=== PATIENT | female | born 1975 | race Caucasian/White ===

== ENCOUNTER 2020-02-02 22:02 | Emergency (ER) | payer BC ==
[2020-02-02] MEDS ORDERED: Acetaminophen/HYDROcodone 325-5 MG Tab PO ONE (22:03)
[2020-02-02] MEDS ORDERED: Sodium Chloride 0.9% 1,000 ML IV ONE (22:26)
[2020-02-02] MEDS ORDERED: Ondansetron 4 MG/2 ML SDV IVPUSH ONE (22:27)
[2020-02-02] MEDS ORDERED: Ketorolac 30 MG/ML SDV IVPUSH ONE (22:27)
--- NOTE | 2020-02-02 22:34 | EDM.PDOC ---
ED HPI GENERAL MEDICAL PROBLEM - General Chief Complaint: Abdominal Pain Stated Complaint: tummy pain Time Seen by Provider: 02/02/20 22:10 Source of Information: Reports: Patient History Limitations: Reports: No Limitations - History of Present Illness INITIAL COMMENTS - FREE TEXT/NARRATIVE: Gradually worsening RLQ abd pain since this am since 8pm got worse , has had to vomit 2 times due to the pain sharp intermittent LAP , may radiate to the flank LMP 3 days ago no fever but had chills no cough , no sob Onset: Gradual Onset Date: 02/02/20 Onset Time: 08:30 Duration: Getting Worse, Intermittent Location: Reports: Abdomen Quality: Reports: Ache, Dull Severity: Moderate Worsens with: Reports: Movement Associated Symptoms: Reports: Diaphoresis, Malaise, Nausea/Vomiting R lower abdomen Pain Score (Numeric/FACES): 8 - Related Data Allergies Allergy/AdvReac Type Severity Reaction Status Date / Time No Known Allergies Allergy Verified 02/02/20 22:10 Home Meds: Home Meds Acetaminophen/HYDROcodone [[place] 325-5 MG] 1 tab PO Q6H #20 tablet 02/03/20 [Rx] Ondansetron [Zofran ODT] 4 mg PO Q6H PRN #30 tab.dis 02/03/20 [Rx] Tamsulosin HCl [Flomax] 0.4 mg PO DAILY #30 capsule 02/03/20 [Rx] ED ROS GENERAL - Review of Systems Review Of Systems: See Below Constitutional: Reports: Malaise, Weakness HEENT: Reports: No Symptoms Respiratory: Reports: No Symptoms Cardiovascular: Reports: No Symptoms Endocrine: Reports: No Symptoms GI/Abdominal: Reports: Abdominal Pain, Anorexia, Decreased Appetite, Nausea, Vomiting. Denies: Constipation, Diarrhea : Reports: No Symptoms Musculoskeletal: Reports: No Symptoms Skin: Reports: No Symptoms Neurological: Reports: No Symptoms Psychiatric: Reports: No Symptoms ED EXAM, GI/ABD - Physical Exam Exam: See Below Exam Limited By: No Limitations General Appearance: Alert, WD/WN, Mild Distress (in obvious pain) Eyes: Bilateral: EOMI Ears: Normal External Exam Throat/Mouth: Normal Inspection, Normal Oropharynx Head: Atraumatic, Normocephalic Neck: Normal Inspection, Supple, Non-Tender Respiratory/Chest: No Respiratory Distress, Lungs Clear Cardiovascular: Regular Rate, Rhythm GI/Abdominal Exam: Soft, Non-Tender Extremities: Normal Inspection, Normal Range of Motion Neurological: Alert, Oriented, CN II-XII Intact Psychiatric: Normal Affect Skin Exam: Warm, Dry Course - Vital Signs Last Recorded V/S: Last Vital Signs Temp 37.6 C 02/03/20 00:59 Pulse 102 H 02/03/20 00:59 Resp 20 02/03/20 00:59 BP 164/79 H 02/03/20 00:59 Pulse Ox 99 02/03/20 00:59 - Orders/Labs/Meds Orders: Active Orders 24 hr Category Date Time Status Abdomen Pelvis wo Cont [CT] Stat Exams 02/02/20 23:24 Taken CULTURE URINE [RM] Stat Lab 02/02/20 23:26 Received Sodium Chloride 0.9% [Normal Saline] 1,000 ml Med 02/03/20 00:15 Active IV ASDIRECTED cefTRIAXone [Rocephin] Med 02/02/20 23:45 Active 1 gm IVPUSH Q24H Medication Orders Ceftriaxone Sodium (Rocephin) 1 gm IVPUSH Q24H MARCELO Last Admin: 02/02/20 23:41 Dose: 1 gm Sodium Chloride (Normal Saline) 1,000 mls @ 999 mls/hr IV ASDIRECTED MARCELO Last Admin: 02/03/20 00:26 Dose: 999 mls/hr Labs: Laboratory Tests 02/02/20 02/02/20 02/02/20 Range/Units 22:24 22:24 22:40 WBC 10.3 (4.5-12.0) X10-3/uL RBC 4.63 (3.23-5.20) x10(6)uL Hgb 13.1 (11.5-15.5) g/dL Hct 40.4 (30.0-51.3) % MCV 87.2 (80-96) fL MCH 28.4 (27.7-33.6) pg MCHC 32.5 (32.2-35.4) g/dL RDW 12.9 (11.5-15.5) % Plt Count 335 (125-369) X10(3)uL MPV 7.9 (7.4-10.4) fL Neut % (Auto) 78.4 (46-82) % Lymph % (Auto) 16.6 (13-37) % [place] % (Auto) 3.6 L (4-12) % Eos % (Auto) 1 (1.0-5.0) % Baso % (Auto) 1 (0-2) % Neut # (Auto) 8.0 (1.6-8.3) # Lymph # (Auto) 1.7 (0.6-5.0) # [place] # (Auto) 0.4 (0.0-1.3) # Eos # (Auto) 0.1 (0.0-0.8) # Baso # (Auto) 0.1 (0.0-0.2) # Sodium 143 (135-145) mmol/L Potassium 3.9 (3.5-5.3) mmol/L Chloride 104 (100-110) mmol/L Carbon Dioxide 29 (21-32) mmol/L BUN 11 (7-18) mg/dL Creatinine 1.2 H (0.55-1.02) mg/dL Est Cr Clr Drug Dosing TNP Estimated GFR (MDRD) 49 L (>60) BUN/Creatinine Ratio 9.2 (9-20) Glucose 116 (80-116) mg/dL Calcium 9.0 (8.6-10.2) mg/dL Total Bilirubin 0.3 (0.1-1.3) mg/dL AST 23 (5-25) IU/L ALT 42 H (12-36) U/L Alkaline Phosphatase 97 (56-112) IU/L Total Protein 8.0 (6.0-8.0) g/dL Albumin 4.1 (3.5-5.2) g/dL Globulin 3.9 g/dL Albumin/Globulin Ratio 1.1 Urine Color Yellow (YELLOW) Urine Appearance Slightly cloudy (CLEAR) Urine pH 5.0 (5.0-6.5) Ur Specific [place] 1.030 H (1.010-1.025) Urine Protein Negative (NEGATIVE) mg/dL Urine Glucose (UA) Normal (NORMAL) mg/dL Urine Ketones Negative (NEGATIVE) mg/dL Urine Occult Blood Moderate H (NEGATIVE) Urine Nitrite Negative (NEGATIVE) Urine Bilirubin Negative (NEGATIVE) Urine Urobilinogen Normal (NEGATIVE) mg/dL Ur Leukocyte Esterase Moderate H (NEGATIVE) Urine RBC 5-10 H (0-5) Urine WBC 5-10 H (0-5) Ur Squamous Epith Cells Few H (NS,R,O) Urine Bacteria Few H (NS) Urine Mucus Few H (NS) Meds: Medications Generic Name Dose Route Start Last Admin Trade Name Best PRN Reason Stop Dose Admin Ceftriaxone Sodium 1 gm 02/02/20 23:45 02/02/20 23:41 Rocephin IVPUSH 1 gm Q24H MARCELO Administration Sodium Chloride 1,000 mls @ 999 mls/hr 02/03/20 00:15 02/03/20 00:26 Normal Saline IV 999 mls/hr ASDIRECTED MARCELO Administration Discontinued Medications Generic Name Dose Route Start Last Admin Trade Name Best PRN Reason Stop Dose Admin Sodium Chloride 1,000 mls @ 999 mls/hr 02/02/20 22:26 02/02/20 22:35 Normal Saline IV 02/02/20 23:26 999 mls/hr .BOLUS ONE Administration Ceftriaxone Sodium 1 gm/ 50 mls @ 200 mls/hr 02/02/20 23:24 02/02/20 23:41 Sodium Chloride IV 02/02/20 23:38 Not Given ONETIME ONE Prochlorperazine Edisylate 10 52 mls @ 150 mls/hr 02/03/20 00:01 02/03/20 00: 32 mg/ Sodium Chloride IV 02/03/20 00:21 150 mls/hr ONETIME ONE Administration Ketorolac Tromethamine 30 mg 02/02/20 22:27 02/02/20 22:35 Toradol IVPUSH 02/02/20 22:28 30 mg ONETIME ONE Administration Methylprednisolone Sodium Succinate 125 mg 02/03/20 00:12 02/03/20 00:30 Solu-Medrol IVPUSH 02/03/20 00:13 125 mg ONETIME ONE Administration Morphine Sulfate 4 mg 02/02/20 23:52 02/03/20 00:00 Morphine IVPUSH 02/02/20 23:53 4 mg ONETIME ONE Administration Ondansetron HCl 4 mg 02/02/20 22:27 02/02/20 22:37 Zofran IVPUSH 02/02/20 22:28 4 mg ONETIME ONE Administration Tamsulosin HCl 0.4 mg 02/02/20 23:53 02/03/20 00:00 Flomax PO 02/02/20 23:54 0.4 mg ONETIME ONE Administration - Re-Assessments/Exams Free Text/Narrative Re-Assessment/Exam: 02/03/20 01:51 pt given IVF 2 liters zofran , compazine , Morphine diagnosed with renal calculi 02/03/20 02:00 Departure - Departure Time of Disposition: 02:00 Disposition: Home, Self-Care 01 Clinical Impression: Renal calculi, UTI (urinary tract infection) - Discharge Information *PRESCRIPTION DRUG MONITORING PROGRAM REVIEWED*: Not Applicable *COPY OF PRESCRIPTION DRUG MONITORING REPORT IN PATIENT JANETH: Not Applicable Prescriptions: Acetaminophen/HYDROcodone [[place] 325-5 MG] 1 tab PO Q6H #20 tablet Ondansetron [Zofran ODT] 4 mg PO Q6H PRN #30 tab.dis PRN Reason: Nausea/Vomiting Tamsulosin HCl [Flomax] 0.4 mg PO DAILY #30 capsule Instructions: Renal Colic, [id number], Nausea and Vomiting, Adult, Easy-to- Read, Urinary Tract Infection, Adult, [id number], Dietary Guidelines to Help Prevent Kidney Stones Referrals: PCP,None [Primary Care Provider] - Forms: ED Department Discharge Additional Instructions: 1)Increase fluid intake 2) Strain urine : obtain stone and bring in for evaluation 3) Follow up with PCP as needed Sepsis Event Note - Focused Exam Vital Signs: Vital Signs Temp Temp Pulse Resp BP Pulse Ox 02/03/20 00:59 37.6 C 102 H 20 164/79 H 99 02/02/20 23:21 37.4 C 86 20 131/71 100 02/02/20 22:05 37.1 C 67 18 160/83 H 99 Date Exam was Performed: 02/03/20 Time Exam was Performed: 02:01 - My Orders Last 24 Hours: My Active Orders 02/02/20 23:24 Abdomen Pelvis wo Cont [CT] Stat 02/02/20 23:26 CULTURE URINE [RM] Stat 02/02/20 23:45 cefTRIAXone [Rocephin] 1 gm IVPUSH Q24H 02/03/20 00:15 Sodium Chloride 0.9% [Normal Saline] 1,000 ml IV ASDIRECTED - Assessment/Plan Last 24 Hours: My Active Orders 02/02/20 23:24 Abdomen Pelvis wo Cont [CT] Stat 02/02/20 23:26 CULTURE URINE [RM] Stat 02/02/20 23:45 cefTRIAXone [Rocephin] 1 gm IVPUSH Q24H 02/03/20 00:15 Sodium Chloride 0.9% [Normal Saline] 1,000 ml IV ASDIRECTED
[2020-02-02] MEDS ORDERED: cefTRIAXone 1 GM in Sodium Chloride 0.9% 50 ML IV ONE (23:24)
[2020-02-02] MEDS ORDERED: cefTRIAXone 1 GM Vial IVPUSH SCH (23:45)
[2020-02-02] MEDS ORDERED: Morphine 2 MG/ML Syringe IVPUSH ONE (23:52)
[2020-02-02] MEDS ORDERED: Tamsulosin 0.4 MG Cap.ER PO ONE (23:53)
[2020-02-03] MEDS ORDERED: Prochlorperazine 10 MG in Sodium Chloride 0.9% 50 ML IV ONE (00:01)
[2020-02-03] MEDS ORDERED: methylPREDNISolone Sodium Succinate 125 MG/2 ML SDV IVPUSH ONE (00:12)
[2020-02-03] MEDS ORDERED: Sodium Chloride 0.9% 1,000 ML IV SCH (00:15)
[2020-02-03 01:03] VITALS: BP 164/79
[2020-02-03 03:05] VITALS: PULSE 100
== END 2020-02-03 02:19 | disposition home or self-care (01) ==
LOC: FB.ED 22:02
DX: N13.2 Hydronephrosis with renal and ureteral calculous obstruction (principal); N39.0 Urinary tract infection, site not specified
CPT/HCPCS: 36415; 74176; 80053; 81001; 85025; 87086; 87088; 87186; 96361; 96365; 96375; 99283; 99284-25; A9270-GY; J0696; J0780; J1885; J2270; J2405; J2930; J7030; J7050